=== PATIENT | female | born 1995 | race Caucasian/White ===

== ENCOUNTER 2018-07-01 19:21 | Emergency (ER) | payer BC, OTHER ==
[2018-07-01 19:32] VITALS: BP 142/88; PULSE 93; TEMP 98.3; BMI 26.2
--- NOTE | 2018-07-01 19:38 | PDOC ---
History of Present Illness - General History Source: Patient Exam Limitations: No Limitations - History of Present Illness Initial Comments: 07/01/18 20:24 A portion of this note was documented by scribe services under my direction. I have reviewed the details of the note, within reason, and agree with the documentation with the following case summary and management plan written by me. Patient treated in the ED. Nursing notes are reviewed and incorporated into the medical decision-making. Vital signs reviewed. Assessment and plan: This is a 22-year-old female who comes in complaining of epigastric pain times one day. Patient denies history of similar pain in the past. Patient vomited times one. On my exam patient had minimal tenderness in the epigastric area no guarding or rebound. A workup was initiated including CBC, comp, UA, urine Patient given Maalox for presumptive excess acid/gastritis 07/01/18 20:29 Reevaluation patient feels somewhat better after the Maalox. patient's workup is completely negative including a normal white count and normal differential normal chemistries. Her urine does show 1+ leuk esterase however no bacteria and patient does not give me any complaints of urinary tract symptoms. Patient discharged home will follow-up with her primary care doctor patient advised that this is most likely some mild gastritis and to purchase some over- the-counter antacids. <Allan Yo I - Last Filed: 07/01/18 20:29> - General History Source: Patient Exam Limitations: No Limitations - History of Present Illness Initial Comments: 07/01/18 20:49 The patient is a 22 year old female, with no significant past medical history of who presents to the emergency department with 1 day of upper epigastric pain. The patient notes 1 episode of vomiting associated with nausea. The patient notes taking Gas-X with no relief. Patient denies any pain like this in the past. The patient denies chest pain, shortness of breath, headache and dizziness. The patient denies dysuria, frequency, urgency and hematuria. PAST SURGICAL HISTORY: no significant history FAMILY HISTORY: no pertinent history SOCIAL HISTORY: Pt lives with family and is employed. MEDICATIONS: reviewed ALLERGIES: As per nursing notes <Peter Lopez - Last Filed: 07/01/18 20:50> - General Chief Complaint: Pain, Acute Stated Complaint: UPPER ABDOMINAL PAIN SINCE YESTERDAY Time Seen by Provider: 07/01/18 19:32 Past History - Past Medical History COPD: No Other medical history: DENIES - Immunization History Td Vaccination: Yes Immunization Up to Date: Yes - Suicide/Smoking/Psychosocial Hx Smoking Status: No Smoking History: Never smoked Have you smoked in the past 12 months: No Number of Cigarettes Smoked Daily: 0 Information on smoking cessation initiated: No Hx Alcohol Use: No Drug/Substance Use Hx: No Substance Use Type: None <Allan Yo I - Last Filed: 07/01/18 20:29> <Peter Lopez - Last Filed: 07/01/18 20:50> - Past Medical History Allergies/Adverse Reactions: Allergies Allergy/AdvReac Type Severity Reaction Status Date / Time No Known Allergies Allergy Verified 07/01/18 19:24 Home Medications: Ambulatory Orders Medroxyprogesterone Acetate [Depo-Provera] 150 mg IM MONTHLY 07/01/18 Review of Systems - Review of Systems Able to Perform ROS?: Yes Comments:: 07/01/18 20:49 General: No fevers or chills, no weakness, no weight loss HEENT: No change in vision. No sore throat,. No ear pain CardioVascular: No chest pain or shortness of breath Respiratory:No cough, or wheezing. Gastrointestinal: (+) nausea, (+) vomiting, diarrhea or constipation, No rectal bleeding Genitourinary: No dysuria, hematuria, or frequency Musculoskeletal: No joint or muscle pain or swelling Neurologic: No headache, vertigo, dizziness or loss of consciousness Psychiatric: nor depression Skin: No rashes or easy bruising Endocrine: no increased thirst or abnormal weight change Allergic: no skin or latex allergy All other systems reviewed and normal All Other Systems: Reviewed and Negative <Peter Lopez - Last Filed: 07/01/18 20:50> *Physical Exam - Vital Signs Last Vital Signs Temp Pulse Resp BP Pulse Ox 98.3 F 93 H 16 142/88 100 07/01/18 19:28 07/01/18 19:28 07/01/18 19:28 07/01/18 19:28 07/01/18 19:28 <Allan Yo I - Last Filed: 07/01/18 20:29> - Vital Signs Last Vital Signs Temp Pulse Resp BP Pulse Ox 98.3 F 93 H 16 142/88 100 07/01/18 19:28 07/01/18 19:28 07/01/18 19:28 07/01/18 19:28 07/01/18 19:28 - Physical Exam Comments: 07/01/18 20:49 General: Well-nourished well-developed individual, no acute distress HEENT: Throat: Normal, tonsils normal, no erythema or exudate Neck: Supple, no meningeal signs, no lymphadenopathy Eyes::Pupils equal reactive and round, extraocular motion intact Chest: Nontender to palpation Cardiac: S1-S2 normal, regular rate and rhythm, no murmurs rubs or gallops Respiratory: Lungs clear to auscultation bilateral Abdomen: (+) mild tenderness on upper epigastric. No guarding. Extremities: Warm, dry, no cyanosis, clubbing, or edema Skin: No rashes Neuro: Alert and oriented x3, nonfocal exam, grossly intact, normal gait Psych: Normal mood and affect <Peter Lopez - Last Filed: 07/01/18 20:50> Moderate Sedation - Procedure Monitoring Vital Signs: Procedure Monitoring Vital Signs Temperature 98.3 F 07/01/18 19:28 Pulse Rate 93 H 07/01/18 19:28 Respiratory Rate 16 07/01/18 19:28 Blood Pressure 142/88 07/01/18 19:28 O2 Sat by Pulse Oximetry (%) 100 07/01/18 19:28 <Allan Yo I - Last Filed: 07/01/18 20:29> - Procedure Monitoring Vital Signs: Procedure Monitoring Vital Signs Temperature 98.3 F 07/01/18 19:28 Pulse Rate 93 H 07/01/18 19:28 Respiratory Rate 16 07/01/18 19:28 Blood Pressure 142/88 07/01/18 19:28 O2 Sat by Pulse Oximetry (%) 100 07/01/18 19:28 <Peter Lopez - Last Filed: 07/01/18 20:50> ED Treatment Course - LABORATORY CBC & Chemistry Diagram: 07/01/18 19:55 07/01/18 19:55 <Allan Yo I - Last Filed: 07/01/18 20:29> - LABORATORY CBC & Chemistry Diagram: 07/01/18 19:55 07/01/18 19:55 - ADDITIONAL ORDERS Additional order review: Laboratory Results 07/01/18 07/01/18 07/01/18 19:55 19:35 19:35 Sodium 137 Potassium 4.0 Chloride 103 Carbon Dioxide 24 Anion Gap 10 BUN 14 Creatinine 0.7 Creat Clearance w eGFR > 60 Random Glucose 102 Calcium 9.5 Total Bilirubin 0.8 AST 21 ALT 21 Alkaline Phosphatase 68 Total Protein 7.6 Albumin 4.6 Urine Color Yellow Urine Appearance Clear Urine pH 7.0 Ur Specific [place] 1.015 Urine Protein Negative Urine Glucose (UA) Negative Urine Ketones Negative Urine Blood Trace-intact H Urine Nitrite Negative Urine Bilirubin Negative Urine Urobilinogen 0.2 Ur Leukocyte Esterase 1+ H Urine RBC 2-5 Urine WBC 2-5 Ur Epithelial Cells 1+ Urine Bacteria 1+ Urine HCG, Qual Negative 07/01/18 19:55 RBC 4.91 MCV 88.0 MCHC 32.5 RDW 13.5 MPV 8.0 Neutrophils % 67.5 Lymphocytes % 22.3 Monocytes % 8.5 Eosinophils % 0.8 Basophils % 0.9 - Medications Given in the ED: ED Medications Discontinued Medications Generic Name Dose Route Start Last Admin Trade Name Freq PRN Reason Stop Dose Admin Al Hydroxide/Mg Hydroxide 30 ml 07/01/18 19:50 07/01/18 20:09 Mylanta Oral Suspension - PO 07/01/18 19:51 30 ml ONCE ONE Administration <Peter Lopez - Last Filed: 07/01/18 20:50> *DC/Admit/Observation/Transfer - Discharge Dispostion Decision to Admit order: No <Allan Yo I - Last Filed: 07/01/18 20:29> - Attestations Scribe Attestion: 07/01/18 20:50 Documentation prepared by Peter Lopez, acting as medical services assistant for Allan Yo MD <Peter Lopez - Last Filed: 07/01/18 20:50> Diagnosis at time of Disposition: Epigastric abdominal pain - Discharge Dispostion Disposition: HOME Condition at time of disposition: Stable - Patient Instructions Additional Instructions: Your symptoms are most likely due to excess acid production secondary to stress.. Purchase some [id number] antacids such as Pepcid or Zantac and take as directed in addition to that you can also take Tums as directed on the bottle. Return to the emergency department immediately with ANY new, persistent or worsening symptoms. Continue any medications as previously prescribed by your physician. You should follow up with your primary doctor as soon as possible regarding today's emergency department visit. . Please make sure your doctor reviews the results of your emergency evaluation. Thank you for coming to the Emergency Department today for your care. It was a pleasure to see you today. Please note that your evaluation is INCOMPLETE until you follow-up with your doctor.
[2018-07-01] MEDS ORDERED: MAG HYDROX/AL HYDROX/SIMETH 30 ML UNIT-DOSE CUP PO ONE (19:50)
[2018-07-01 19:58] LABS: URINE APPEARANCE Clear; URINE BILIRUBIN Negative (NEGATIVE); URINE COLOR Yellow; URINE GLUCOSE (UA) Negative (NEGATIVE); URINE KETONE Negative (NEGATIVE); URINE LEUK ESTERASE 1+ (NEGATIVE); URINE NITRITE Negative (NEGATIVE); URINE PROTEIN Negative (NEGATIVE); URINE UROBILINOGEN 0.2 (0.2-1.0)
[2018-07-01 20:04] LABS: BASO % 0.9 % (0-2.0); EOS % 0.8 % (0-4.5); HEMATOCRIT 43.3 % (32.4-45.2); HEMOGLOBIN 14.1 GM/dl (10.7-15.3); LYMPH % 22.3 % (8-40); MCH 28.6 pg (25.7-33.7); MCHC 32.5 g/dl (32.0-36.0); MONO % 8.5 % (3.8-10.2); NEUT % 67.5 % (42.8-82.8); PLATELET COUNT 249 K/MM3 (134-434); RBC 4.91 M/mm3 (3.60-5.2); RDW 13.5 % (11.6-15.6); WHITE BLOOD COUNT 7.3 K/mm3 (4.0-10.8)
[2018-07-01] MEDS ORDERED: MAG HYDROX/AL HYDROX/SIMETH 30 ML UNIT-DOSE CUP ONE (20:06)
[2018-07-01 20:20] LABS: ALBUMIN 4.6 g/dl (3.4-5.0); ALK PHOS 68 U/L (45-117); ANION GAP 10 MMOL/L (8-16); BILIRUBIN,TOTAL 0.8 mg/dl (0.2-1); BLOOD UREA NITROGEN 14 mg/dl (7-18); CALCIUM 9.5 mg/dl (8.5-10); CHLORIDE 103 mmol/L (98-107); CO2 24 mmol/L (21-32); CREATININE 0.7 mg/dl (0.55-1.3); GLUCOSE,RANDOM 102 mg/dl (74-106); SGOT/AST 21 U/L (15-37); SGPT/ALT 21 U/L (13-61); SODIUM 137 mmol/L (136-145); TOT PROT 7.6 g/dl (6.4-8.2)
[2018-07-01 20:43] LABS: EPI CELLS 1+ /HPF; URINE BACTERIA 1+ /hpf (NEGATIVE)
== END 2018-07-01 20:35 | disposition home or self-care (01) ==
LOC: FER 19:21
DX: R10.13 Epigastric pain (principal)
CPT/HCPCS: 36415; 80053; 81003; 81015; 84703; 85025; 99281-25

== ENCOUNTER 2018-10-29 21:05 | Emergency (ER) | payer BC | END 2018-10-29 22:33 | disposition home or self-care (01) | LOC: JERFT 21:05 ==

== ENCOUNTER 2020-09-13 22:15 | Emergency (ER) | payer BC, OTHER ==
[2020-09-13] MEDS ORDERED: ACETAMINOPHEN 500 MG TABLET (FP) PO ONE (22:19)
[2020-09-13] MEDS ORDERED: ONDANSETRON *ODT* 4 MG TABLET SL ONE (22:19)
[2020-09-13] MEDS ORDERED: ACETAMINOPHEN 500 MG TABLET (FP) ONE (22:32)
[2020-09-13] MEDS ORDERED: ONDANSETRON *ODT* 4 MG TABLET ONE (22:32)
[2020-09-13 22:59] VITALS: BP 130/86; PULSE 108; TEMP 98.7; BMI 25.4
== END 2020-09-13 23:02 | disposition home or self-care (01) ==
LOC: FER 22:15
DX: R11.2 Nausea with vomiting, unspecified (principal)
CPT/HCPCS: 99283-25; Q0162